=== PATIENT | female | born 1975 | race Caucasian/White ===

== ENCOUNTER 2019-09-17 14:28 | Emergency (ER) | payer OTHER ==
[~2019-09-17] VITALS: Ht 170.2 cm; Wt 68.0 kg
[~2019-09-17 14:28] MED LIST: NAPROSYN500 MG PO; NOHOMEMEDICATIONS
[2019-09-17 14:34] VITALS: BP 134/77
[2019-09-17] MEDS ORDERED: BUPROPION XL300 MG PO (14:38)
== END 2019-09-17 15:10 | disposition left against medical advice (07) ==
LOC: M.ERS 14:28
DX: R10.31 Right lower quadrant pain (principal); Z53.21 Procedure and treatment not carried out due to patient leaving prior to being seen by health care provider